=== PATIENT | male | born 1965 | race Caucasian/White ===

== ENCOUNTER → 2017-10-18 09:04 | Outpatient (CLI) | payer MEDICAID, SELFPAY ==
[2017-10-23 12:06] LABS: Alternaria tenuis <0.10 kU/L (Class 0); Ash, White <0.10 kU/L (Class 0); Aspergillus fumigatus <0.10 kU/L (Class 0); Bermuda Grass <0.10 kU/L (Class 0); Birch <0.10 kU/L (Class 0); Black Walnut <0.10 kU/L (Class 0); Cat Hair / Dander,Stand <0.10 kU/L (Class 0); Cedar, Mountain <0.10 kU/L (Class 0); Cladosporium herbarum <0.10 kU/L (Class 0); Cockroach, American <0.10 kU/L (Class 0); Cottonwood <0.10 kU/L (Class 0); D farinae Mite <0.10 kU/L (Class 0); D pteronyssinus <0.10 kU/L (Class 0); Dog Epithelia <0.10 kU/L (Class 0); Elm, American White <0.10 kU/L (Class 0); Immunoglobulin E 6 IU/mL (0-100); Maple/Box Elder <0.10 kU/L (Class 0); Mulberry, White <0.10 kU/L (Class 0); Oak, White <0.10 kU/L (Class 0); Pecan <0.10 kU/L (Class 0); Penicillium Notatum <0.10 kU/L (Class 0); Pigweed, Rough <0.10 kU/L (Class 0); Ragweed, Short/Common <0.10 kU/L (Class 0); Russian Thistle <0.10 kU/L (Class 0); Sheep Sorrel <0.10 kU/L (Class 0); Sycamore, American <0.10 kU/L (Class 0); Timothy Grass <0.10 kU/L (Class 0)
[2017-10-23 12:39] LABS: Mouse Urine <0.10 kU/L (Class 0)
== END ==
PROVIDERS: Family Provider Internal Medicine; PCP Internal Medicine; Visit Provider Otolaryngology
DX: T78.40XA Allergy, unspecified, initial encounter (principal)
CPT/HCPCS: 36415; 82785; 86003

== ENCOUNTER → 2017-12-09 06:40 | Outpatient (CLI) | payer MEDICAID, SELFPAY ==
--- NOTE | 2017-12-09 12:16 | PFTCOMP ---
COMPLETE PULMONARY FUNCTION TEST INTERPRETATION Brief HPI: Patient is a 52 year old male, currently under the care of Dr. Guzman, who presents to [facility] for complete pulmonary function tests secondary to diagnosis of allergic rhinitis. Respiratory therapist reports good effort and reproducible results. Interpretation: Forced expiration spirometry shows no large airways obstructive ventilatory defect with an FEV1 of 111% predicted. There is no significant bronchodilator response by ATS criteria. Spirograms are of good quality and plateau normally. The respiratory flow volume loop shows a normal pattern. Lung volumes by body plethysmography show a normal total lung capacity at 7.05 L, 112% predicted. All other lung volumes are within normal limits. Diffusion capacity by carbon monoxide is normal at 98% predicted. The airway resistance is normal. No previous pulmonary function tests were available for review. Impression: These pulmonary function tests are within normal limits.
--- NOTE | 2017-12-09 12:24 | PFTCOMP_ITS ---
COMPLETE PULMONARY FUNCTION TEST INTERPRETATION Brief HPI: Patient is a 52 year old male, currently under the care of Dr. Guzman, who presents to [facility] for complete pulmonary function tests secondary to diagnosis of allergic rhinitis. Respiratory therapist reports good effort and reproducible results. Interpretation: Forced expiration spirometry shows no large airways obstructive ventilatory defect with an FEV1 of 111% predicted. There is no significant bronchodilator response by ATS criteria. Spirograms are of good quality and plateau normally. The respiratory flow volume loop shows a normal pattern. Lung volumes by body plethysmography show a normal total lung capacity at 7.05 L , 112% predicted. All other lung volumes are within normal limits. Diffusion capacity by carbon monoxide is normal at 98% predicted. The airway resistance is normal. No previous pulmonary function tests were available for review. Impression: These pulmonary function tests are within normal limits.
== END ==
PROVIDERS: Family Provider Internal Medicine; PCP Internal Medicine; Visit Provider Internal Medicine Critical Care Medicine
DX: J30.9 Allergic rhinitis, unspecified (principal); R05 Cough
CPT/HCPCS: 94060; 94726; 94729

== ENCOUNTER → 2018-06-16 06:51 | Outpatient (CLI) | payer MEDICAID, SELFPAY ==
[2018-06-07 13:39] VITALS: BMI 29.0
--- NOTE | 2018-06-16 06:53 | CT_ITS ---
STUDY: CT CHEST/THORAX WITH CONTRAST REASON FOR EXAM: Male, 52 years old. Cough. RADIATION DOSAGE (If Supplied By Facility): CTDIvol = ( 7.97 ) mGy, DLP = ( 481.20 ) mGycm TECHNIQUE: Transaxial imaging was performed following intravenous administration of 100 ml of Isovue 300 contrast material. Multiplanar coronal and sagittal images were reformatted. Individualized dose optimization techniques were used for this CT. COMPARISON: Portable AP upright chest x-ray October 17, 2015. FINDINGS: There is patchy, ill-defined infiltrate consistent with inflammation/infection in the inferior right upper lobe There is no demonstrated pleural abnormality. Normal heart and pericardium. Normal mediastinum. Normal hilar regions. Normal enhanced pulmonary arteries. There is atherosclerotic calcification of the aortic arch. There are multi-level degenerative changes of the thoracic spine. There is no demonstrated abnormality of the visualized upper abdomen. CT/Chest WITH Contrast IMPRESSION: Ill-defined right upper lobe infiltrate consistent with inflammation/infection. Electronically Signed: Richard Tam MD at 18:43 EST , Service support ,
== END ==
PROVIDERS: Family Provider Internal Medicine; PCP Internal Medicine; Referring Provider Otolaryngology; Visit Provider Otolaryngology
DX: R05 Cough (principal)
CPT/HCPCS: 71260; Q9967

== ENCOUNTER 2019-09-15 03:03 | Emergency (ER) | payer MEDICAID, SELFPAY ==
[2018-08-04 10:34] VITALS: BMI 29.0
[2019-09-15 03:04] VITALS: BP 143/92; PULSE 53; RESP 16; TEMP 36.7; O2SAT 98; BMI 26.2
--- NOTE | 2019-09-15 03:24 | EKG12_ITS ---
Test Reason : Blood Pressure : / mmHG Vent. Rate : 081 BPM Atrial Rate : 081 BPM P-R Int : 166 ms QRS Dur : 094 ms QT Int : 404 ms P-R-T Axes : 036 -48 046 degrees QTc Int : 469 ms Normal sinus rhythm Left anterior fascicular block Possible Lateral infarct , age undetermined Abnormal ECG Confirmed by JEREMY KNOX, HERMILA ([id number]), editor publications JENNIFER RUTHERFORD ([id number]) on 09/17/2019 3:32:27 PM Referred By: BB Confirmed By:HERMILA LUNA MD
--- NOTE | 2019-09-15 03:25 | ED.VIS.GI ---
History of Present Illness Chief Complaint: General Illness Detail of Chief Complaint: near-syncope Informant: Patient, Family - Abdominal Pain/Flank Pain Onset: Hours - 1 Context: Onset with activity - sitting on toilet having diarrhea, Gradual Onset Timing: Intermittent - x1, Lasts - 1-2 min Quality: - - lightheaded like I was going to pass out Current Severity: Gone Maximum Severity: Moderate Worsened by: Nothing Relieved by: Nothing - gradually resolved as he sat - Nausea/Vomiting/Emesis GI Symptom: Nausea - gone. Negative for: Vomiting Severity: Mild - Diarrhea/Melena/Hematochezia GI Symptom: Diarrhea. Negative for: Melena, Hematochezia Onset: Hours - 1 Stool Quality: Watery. Negative for: Mucous, Black, Maroon, LENNIE per rectum Episodes: 2 Associated Symptoms: Negative for: Dysuria, Frequency, Hematuria, Urgency Narrative: Healthy 54-year-old presents with 2 episodes of diarrhea and one episode of near syncope that occurred while he was sitting on the toilet having diarrhea 1 of the times. He feels better now. He felt a little nauseated earlier but he has had no vomiting. No abdominal pain. A family member recently had the 24-hour stomach flu. He denies any recent antibiotics, recent travel out of the immediate area, contact with or visiting any skilled nursing or skilled nursing patients, eating any suspicious foods or uncooked meats, new sources of ground water ingestion, or [id number] medications. - Past Medical History (1) GERD (gastroesophageal reflux disease) Status: Chronic Past Medical History - Allergies and Home Meds Allergies/Adverse Reactions: Allergies oxycodone HCl [From Percocet] Adverse Reaction (Mild, Verified 09/15/19 03:08) Upset Stomach codeine Adverse Reaction (Verified 09/15/19 03:08) Nausea/Vom/Diarrhea hydrocodone bitartrate [From Vicodin] Adverse Reaction (Verified 09/15/19 03:08) Nausea propoxyphene napsylate [From Darvocet-N 100] Adverse Reaction (Verified 09/15/19 03:08) Nausea/Vom/Diarrhea Primary Care Physician: Tangela Mendez MD [Primary Care Provider] - 3-5 Days if not improving Surgical History: appendectomy Lives: With Family Smoking Status: Former smoker Drugs: None Review of Systems General: Reports: Malaise. Denies: Chills, Fever, Sweats Eyes: Denies: Visual changes - bilaterally, Diplopia ENT: Denies: Rhinorrhea, Sore throat Cardiovascular: Denies: Chest pain, Palpitations Respiratory: Denies: Dyspnea, Cough, Dyspnea on exertion Gastrointestinal: Reports: Nausea, Diarrhea. Denies: Abdominal pain, Vomiting, Melena, Hematochezia Genitourinary: Denies: Dysuria, Hematuria, Frequency Musculoskeletal: Denies: Back pain, Swelling, Extremity Pain Skin: Denies: Rash, Wounds Neurological: Denies: Headache, Weakness, Numbness Physical Exam Vital Signs/Narrative: Vital Signs Temp Pulse Resp BP Pulse Ox 09/15/19 03:04 98.1 F 53 L 16 143/92 H 98 Inital Vital Signs reviewed: Yes General: Well nourished, Well developed, No Acute Distress - Well-appearing Head: Normocephalic, Atraumatic Eyes: Perrl, EOMI ENT: Moist mucous membranes, No rhinorrhea Neck: Supple, Nontender, No lymphadenopathy, No JVD Cardiovascular: Regular rate, Regular rhythm, No murmurs, Normal S1, Normal S2. Negative for: Bradycardia - On my exam heart rate in the 70s although initially borderline bradycardic Respiratory: No distress, CTA bilaterally, Chest nontender Abdomen: Soft, Nontender, Nondistended, Normal bowel sounds Back: Nontender, Normal Inspection Extremities: Nontender, No edema. Negative for: Calf Tenderness Skin: Normal color, No rash, No Trauma Neurological: Alert, Oriented x3, Cranial nerves II-XII grossly intact, Normal Strength, Normal Sensation, Normal Gait Psychological: Normal affect, Normal Mood Diagnostic/Tx/Re-eval - Rhythm Strip Rhythm Strip: Sinus Rhythm Rate: 72 Ectopy: None - EKG Initial EKG Interpretation: Sinus Rhythm, No Acute Injury Pattern, LAFB, - - poor R-wave progression Prior: No Prior - Medical Decision Making Patient initially was borderline bradycardic and now has heart rate in the 70s before being given IV fluids. I suspect he had a vasovagal reaction related to the diarrhea and having a bowel movement. He is reassured. There are no signs of heart block on his EKG or dysrhythmia and he currently is having no symptomatic bradycardia. He was given a liter of IV fluids. Afterwards he was able to stand without feeling dizzy/lightheaded. There is no reason to my opinion to check blood work at this time. I suspect his diarrhea is viral until proven otherwise. He was encouraged to stay hydrated, he can take Imodium if he feels like he needs it in the next 24-48 hours, and if his symptoms persist longer, I recommend following up with his doctor. For recurrent concerning symptoms he is always welcome to return to the ER which was also relayed. They are comfortable with this overall plan. ED Disposition - Plan for ED Patient: Disposition: Home or Assisted Living Diagnosis: Vasovagal near-syncope, Acute diarrhea Instructions: DIARRHEA, Viral (Child) (Adult), NEAR SYNCOPE, Vasovagal Referrals: Tangela Mendez MD [Primary Care Provider] - 3-5 Days if not improving
[2019-09-15] MEDS: 0.9% Normal Saline 1,000 ML 999 ML IV (03:27)
[2019-09-15] MEDS: Ondansetron 4 MG/2 ML Vial IV (04:31)
[2019-09-15 05:02] VITALS: BP 139/90; PULSE 92; RESP 16; O2SAT 99
== END 2019-09-15 05:06 | disposition home or self-care (01) ==
PROVIDERS: Emergency Provider Emergency Medicine; PCP Internal Medicine
DX: R55 Syncope and collapse (principal); R19.7 Diarrhea, unspecified; R00.1 Bradycardia, unspecified; K21.9 Gastro-esophageal reflux disease without esophagitis; Z88.5 Allergy status to narcotic agent; Z79.899 Other long term (current) drug therapy; Z87.891 Personal history of nicotine dependence
CPT/HCPCS: 93005; 96361; 96374; 99283; J7030; J2405

== ENCOUNTER 2022-07-10 16:30 | Emergency (ER) | payer MEDICAID, SELFPAY ==
[2022-07-10 16:32] VITALS: BP 152/91; PULSE 110; RESP 22; TEMP 36.7; O2SAT 93; BMI 24.7
[2022-07-10 16:38] VITALS: O2SAT 97
--- NOTE | 2022-07-10 16:39 | RAD_ITS ---
STUDY: X-RAY CHEST REASON FOR EXAM: Male, 56 years old. cough TECHNIQUE: Single frontal view of the chest. COMPARISON: CT chest June 16, 2018 FINDINGS: The lungs are clear and expanded. There is no demonstrated pleural abnormality. Normal size heart. Normal mediastinum and ibrahima. Normal visualized pulmonary arteries. Normal visualized aortic arch and descending thoracic aorta. Normal visualized thoracic spine. Normal visualized ribs, clavicles, and shoulders. There is no demonstrated abnormality of the visualized soft tissue structures of the upper abdomen. RAD/Chest 1 View (Portable) IMPRESSION: Normal x-ray examination of the chest. Electronically Signed: Elkin Curran MD at 16:58 EST ,
--- NOTE | 2022-07-10 16:41 | EDS_ITS ---
HPI HPI - URI History of Present Illness Chief Complaint: Cough Narrative Narrative: 56-year-old male who denies significant past medical history presents with cough that has had for the last 5 days or so. It is productive of yellow to green sputum. He denies any fevers or chills. No shortness of breath with this. No chest pain except for when he coughs excessively. He has been taking Tessalon Perles without relief. He also complains of runny nose. He is here for his cough that is lingering. ROS ROS ED ROS Narrative Constitutional: No fever, no chills. HEENT: No sore throat. No neck pain. No loss of vision. Positive rhinorrhea. Cardiovascular: No chest pain. No palpitations. No pedal edema. Respiratory: Positive productive cough, no shortness of breath. Abdominal: No abdominal pain. No nausea. No vomiting. Genitourinary: No dysuria. No hematuria. Musculoskeletal: No myalgias. No arthralgias. Neurologic: No headaches. No dizziness. No lightheadedness. Skin: No rash. No change in color. Psychiatric: No depression. No anxiety. [facility] Medical History (Updated 07/10/22 @ 17:16 by Manjinder Trevizo MD) Acute bronchitis Allergic rhinitis Chest pain Chronic cough Cough GERD (gastroesophageal reflux disease) Pneumonia Home Medications allopurinol 300 mg tablet (Zyloprim) 300 mg PO QDAY 11/03/17 [History Last Taken Unknown] hydroxyzine HCl 25 mg tablet 25 mg PO TID-QID 11/03/17 [History Last Taken U nknown] azelastine-fluticasone 137 mcg-50 mcg/spray nasal spray (Dymista) 1 spray intranasal BID #23 grams 01/05/18 [Rx Last Taken Unknown] albuterol sulfate 90 mcg/actuation aerosol inhaler 2 puff inhalation Q6H PRN cough #1 device 06/09/18 [Rx Last Taken Unknown] cyclobenzaprine 10 mg tablet 10 mg PO Q8H PRN Pain Or Fever 08/04/18 [History Last Taken Unknown] montelukast 10 mg tablet 10 mg PO QPM PRN asthma #30 tabs 08/25/18 [Rx Last Taken Unknown] omeprazole 40 mg capsule,delayed release 40 mg PO BID #60 caps 08/25/18 [Rx Last Taken Unknown] cetirizine 10 mg capsule (Zyrtec) 10 mg PO DAILY PRN allergy symptoms #30 caps 02/12/19 [Rx Last Taken Unknown] colestipol 1 gram tablet 1 tab PO DAILY 09/15/19 [History Last Taken Unknown] albuterol sulfate 90 mcg/actuation aerosol inhaler (Proventil HFA) 1 puff inhalation Q4H PRN shortness of breath or wheezing #8.5 grams 07/10/22 [Rx Last Taken Unknown] Allergy/AdvReac Type Severity Reaction Status Date / Time oxycodone HCl [From Percocet] AdvReac Mild Upset Verified 07/10/22 16:31 Stomach codeine AdvReac Nausea/Vom/ Verified 07/10/22 16:31 Diarrhea hydrocodone bitartrate AdvReac Nausea Verified 07/10/22 16:31 [From Vicodin] propoxyphene napsylate AdvReac Nausea/Vom/ Verified 07/10/22 16:31 [From Darvocet-N 100] Diarrhea Family History Grandfather Colon cancer Myocardial infarction Grandmother CVA (cerebral vascular accident) Surgical History History of appendectomy History of cholecystectomy Social History Smoking Status: Former smoker second hand exposure: No alcohol intake: never substance use type: does not use caffeine: No EXAM Physical Exam Narrative Exam Narrative: Afebrile. Vital signs noted. HEENT: Normocephalic. Atraumatic. PERRL, EOMI. Neck soft and supple. No point tenderness or step off. Cardiovascular: Regular rate and rhythm with intermittent tachycardia. No murmurs, rubs, or gallops appreciated. Respiratory: No tachypnea. Lungs clear to auscultation bilaterally. Gastrointestinal: Abdomen soft, nontender, with normoactive bowel sounds. No rebound or guarding. Neurological: Awake. Alert. Nonfocal, nonlateralizing. Skin: No rash. Normal color. No pallor. Musculoskeletal: No pedal edema. Full range of motion extremities. Const Vital Signs: 07/10/22 16:32 07/10/22 16:38 Temperature 98.1 F Temperature Source Temporal Pulse Rate 110 H Respiratory Rate 22 H Respiratory Effort Normal Non-Labored Respiratory Depth Normal Respiratory Pattern Normal Blood Pressure 152/91 H Blood Pressure Mean 111 Pulse Ox 93 Oxygen Delivery Method Room Air Room Air MDM MDM MDM Narrative Medical decision making narrative: Chest x-ray was obtained in 1 view and interpreted by myself. My interpretation of his chest x-ray shows no acute infiltrate or pneumothorax. I reviewed the radiology report which confirms this as a normal chest x-ray. He was given an albuterol inhaler prescription as he states his inhaler at home is out of date. He states Tessalon Perles are ineffective. He will continue [id number] cough medications. I do not feel antibiotics are indicated. I feel he can be discharged safely home with follow-up. Return instructions to the emergency department were reviewed. Disposition is discharged home in stable condition. Radiography Diagnostic Testing: Clinical Impression(s) from Imaging Studies Chest X-Ray 07/10/22 16:39 IMPRESSION: Normal x-ray examination of the chest. Electronically Signed: Elkin Curran MD at 16:58 EST Reading Location ID and State: [facility] / [place] , Service support , Discharge Plan Triage Chief Complaint: Cough ED Provider: Manjinder Trevizo Dx/Rx/DC Orders Clinical Impression: Cough, Bronchitis Instructions: ED Bronchitis, No Antibiotic (Adult) Prescriptions: New albuterol sulfate [Proventil HFA] 90 mcg/actuation HFA aerosol inhaler 1 puff inhalation Q4H PRN (Reason: shortness of breath or wheezing) Qty: 8.5 0RF No Action hydroxyzine HCl 25 mg tablet 25 mg PO TID-QID allopurinol [Zyloprim] 300 mg tablet 300 mg PO QDAY cyclobenzaprine 10 mg tablet 10 mg PO Q8H PRN (Reason: Pain Or Fever) azelastine-fluticasone 137 mcg-50 mcg/spray nasal spray 137-50 mcg/spray spray,non-aerosol 1 spray INTRANASAL BID Qty: 23 6RF Rx Instructions: administer into each nostril colestipol 1 gram tablet 1 tab PO DAILY albuterol sulfate 90 mcg/actuation HFA aerosol inhaler 2 puff INHALATION Q6H PRN (Reason: cough) Qty: 1 6RF Rx Instructions: administer with spacer montelukast 10 mg tablet 10 mg PO QPM PRN (Reason: asthma) Qty: 30 6RF omeprazole 40 mg capsule,delayed release 40 mg capsule,delayed release(DR/EC) 40 mg PO BID Qty: 60 6RF Zyrtec 10 mg capsule 10 mg PO DAILY PRN (Reason: allergy symptoms) Qty: 30 11RF Primary Care Provider: Tangela Mendez Referrals: Tangela Mendez MD [Primary Care Provider] - 1 Week if not improving Disposition Disposition: Home, Self Care
[2022-07-10 17:14] VITALS: BP 123/74; PULSE 81; RESP 16; TEMP 36.8; O2SAT 97
== END 2022-07-10 17:23 | disposition home or self-care (01) ==
PROVIDERS: Emergency Provider Emergency Medicine; PCP Internal Medicine; Visit Provider Emergency Medicine
DX: J40 Bronchitis, not specified as acute or chronic (principal); R09.3 Abnormal sputum; Z87.891 Personal history of nicotine dependence
CPT/HCPCS: 71045; 99282